=== PATIENT | female | born 1945 | race Caucasian/White ===

== ENCOUNTER 2022-02-09 08:01 | Day surgery (SDC) | payer MEDICARE, OTHER ==
[2022-02-09] VITALS (9 sets, daily range): BP systolic 92–132; BP diastolic 40–76
[~2022-02-09] VITALS: Ht 170.2 cm; Wt 67.6 kg
[2022-02-09] MEDS ORDERED: albumin 25% 100mL bottle x 1 IV PRN (08:30)
[2022-02-09] MEDS ORDERED: DULO30CA52 PO (08:49)
[2022-02-09] MEDS ORDERED: FLUT16SP2 BOTHNARES (08:49)
[2022-02-09] MEDS ORDERED: DICL20GE TP (08:50)
[2022-02-09] MEDS ORDERED: CALC-627 PO (08:51)
[2022-02-09] MEDS ORDERED: ATOR10TA70 PO (08:51)
[2022-02-09] MEDS ORDERED: LEVO125T68 PO (08:53)
[2022-02-09] MEDS ORDERED: CALC0.5C3 PO (08:53)
[2022-02-09] MEDS ORDERED: DABI150C PO (08:53)
[2022-02-09] MEDS ORDERED: CARV25TA2 PO (08:54)
[2022-02-09] MEDS ORDERED: Spironolactone PO (08:58)
== END 2022-02-09 11:50 | disposition home or self-care (01) ==
LOC: SSTAY O 08:01
PROVIDERS: ATTEND Radiology Vascular & Interventional Radiology
DX: R18.8 Other ascites (principal); E78.5 Hyperlipidemia, unspecified; I48.91 Unspecified atrial fibrillation; I11.0 Hypertensive heart disease with heart failure; I50.9 Heart failure, unspecified; E03.9 Hypothyroidism, unspecified; G47.30 Sleep apnea, unspecified; Z98.890 Other specified postprocedural states; Z88.0 Allergy status to penicillin; Z88.8 Allergy status to other drugs, medicaments and biological substances; Z88.1 Allergy status to other antibiotic agents; Z79.899 Other long term (current) drug therapy; Z72.89 Other problems related to lifestyle; Z96.659 Presence of unspecified artificial knee joint; Z98.84 Bariatric surgery status; Z86.73 Personal history of transient ischemic attack (TIA), and cerebral infarction without residual deficits
CPT/HCPCS: 49083; P9047; A6258

== ENCOUNTER 2022-02-19 10:59 | Day surgery (SDC) | payer MEDICARE, OTHER ==
[~2022-02-19] VITALS: Ht 172.7 cm; Wt 64.6 kg
[2022-02-19] VITALS (13 sets, daily range): BP systolic 79–122; BP diastolic 43–61
[~2022-02-19 10:59] MED LIST: ATOR10TA70 PO; CALC-627 PO; CALC0.5C3 PO; CARV25TA2 PO; DABI150C PO; DICL20GE TP; DULO30CA52 PO; FLUT16SP2 BOTHNARES; LEVO125T68 PO; Spironolactone PO
[2022-02-19] MEDS ORDERED: [UNRECOGNIZED DRUG - MIXTURE] PO ×2 (11:40)
[2022-02-19] MEDS ORDERED: DULO-31 PO (11:40)
[2022-02-19 12:27] LABS: BASOPHILS % (AUTO) 0.4 % (0-1); EOSINOPHILS % (AUTO) 0.5 % (0-6); HEMATOCRIT 35.8 % (35.0-45.0); HEMOGLOBIN 11.7 g/dl (12.0-16.0); LYMPHOCYTES # (AUTO) 0.6 X10'3 (1.1-4.8); LYMPHOCYTES % (AUTO) 14.7 % (21-51); MEAN CORPUSCULAR HEMOGLOBIN 30.6 PG (27.0-31.0); MEAN CORPUSCULAR HGB CONC 32.7 g/dL (33.0-36.5); MEAN CORPUSCULAR VOLUME 93.5 FL (78-98); MEAN PLATELET VOLUME 6.5 FL (7.4-10.4); MONOCYTES # (AUTO) 0.3 X10'3 (0-0.9); NEUTROPHILS # (AUTO) 2.9 X10'3 (1.8-7.7); NEUTROPHILS % (AUTO) 77.4 % (42-75); PLATELET COUNT 403 X10'3 (140-440); RED BLOOD COUNT 3.83 X10'6 (4.20-5.60); RED CELL DISTRIBUTION WIDTH 14.1 % (11.5-14.5); WHITE BLOOD COUNT 3.8 X10'3 (4.5-11.0)
[2022-02-19] MEDS ORDERED: LIDOcaine 1%/PF 5ML 10 MG/ML VIAL ONE (12:29)
[2022-02-19] MEDS ORDERED: midazolam 1 mg/ML 2ml injection ONE (12:29)
[2022-02-19] MEDS ORDERED: fentaNYL/PF 50MCG/1 ML 2ML syringe ONE (12:29)
[2022-02-19] MEDS ORDERED: heparin sodium, porcine/PF 100unit/ml 5ML syringe ONE (12:29)
[2022-02-19] MEDS ORDERED: albumin (human) 25% 100ml IV 100 ML IV ONE (13:15)
== END 2022-02-19 15:25 | disposition home or self-care (01) ==
LOC: SSTAY O 10:59
PROVIDERS: ATTEND Radiology Vascular & Interventional Radiology
DX: C80.1 Malignant (primary) neoplasm, unspecified (principal); R18.8 Other ascites; Z88.0 Allergy status to penicillin; Z88.1 Allergy status to other antibiotic agents; Z88.8 Allergy status to other drugs, medicaments and biological substances; Z91.018 Allergy to other foods; Z79.899 Other long term (current) drug therapy; Z98.890 Other specified postprocedural states
CPT/HCPCS: 36415; 36561; 76937; 77001; 85025; 85610; 99152; 99153; C1769; C1788; C1894; J1642; J2250; J3010; J3490; 49083

== ENCOUNTER 2022-03-01 18:46 | Emergency (ER) | payer MEDICARE, OTHER ==
[~2022-03-01] VITALS: Ht 170.2 cm; Wt 140.0 kg
[~2022-03-01 18:46] MED LIST changes: -CALC-627 PO; -DICL20GE TP; +DULO-31 PO; +[UNRECOGNIZED DRUG - MIXTURE] PO
[2022-03-01 19:41] LABS: BASOPHILS % (AUTO) 0.3 % (0-1); EOSINOPHILS % (AUTO) 0.2 % (0-6); HEMATOCRIT 36.5 % (35.0-45.0); HEMOGLOBIN 11.8 g/dl (12.0-16.0); LYMPHOCYTES # (AUTO) 0.4 X10'3 (1.1-4.8); LYMPHOCYTES % (AUTO) 6.6 % (21-51); MEAN CORPUSCULAR HEMOGLOBIN 30.3 PG (27.0-31.0); MEAN CORPUSCULAR HGB CONC 32.5 g/dL (33.0-36.5); MEAN CORPUSCULAR VOLUME 93.5 FL (78-98); MEAN PLATELET VOLUME 6.6 FL (7.4-10.4); MONOCYTES # (AUTO) 0.3 X10'3 (0-0.9); MONOCYTES % (AUTO) 4.6 % (2-12); NEUTROPHILS # (AUTO) 5.9 X10'3 (1.8-7.7); NEUTROPHILS % (AUTO) 88.3 % (42-75); PLATELET COUNT 390 X10'3 (140-440); RED CELL DISTRIBUTION WIDTH 14.5 % (11.5-14.5); WHITE BLOOD COUNT 6.7 X10'3 (4.5-11.0)
[2022-03-01 20:05] LABS: ALANINE AMINOTRANSFERASE 15 U/L (12-78); ALBUMIN 2.1 G/DL (3.4-5.0); ALBUMIN/GLOBULIN RATIO 0.4 (1.1-1.5); ALKALINE PHOSPHATASE 61 IU/L (46-116); ANION GAP 8 (8-16); ASPARTATE AMINO TRANSFERASE 28 U/L (10-37); BILIRUBIN,TOTAL 0.5 MG/DL (0.1-1.0); BLOOD UREA NITROGEN 25 MG/DL (7-18); BUN/CREATININE RATIO 26.3 (6.6-38.0); CALCIUM 8.1 MG/DL (8.5-10.1); CHLORIDE 101 MMOL/L (99-107); CREATININE 0.95 MG/DL (0.40-0.90); GLUCOSE 124 MG/DL (70-104); POTASSIUM 3.7 MMOL/L (3.5-5.1); SODIUM 137 MMOL/L (135-145); TOTAL CARBON DIOXIDE 27.7 MMOL/L (24-32); TOTAL PROTEIN 7.3 G/DL (6.4-8.2); eGFR 57 ML/MIN
[2022-03-01 20:07] LABS: MAGNESIUM 1.7 MG/DL (1.5-2.4)
[2022-03-01 20:52] LABS: CLARITY,URINE SLIGHTLY CLOUDY (Clear); COLOR,URINE YELLOW (Yellow); GLUCOSE, URINE NEGATIVE (Neg); KETONES,URINE TRACE mg/dl (Neg); LEUKOCYTE ESTERASE ,URINE TRACE (Neg); NITRITES, URINE NEGATIVE (Neg); OCCULT BLOOD,URINE NEGATIVE (Neg); PH,URINE 5.5 (4.8-8.0); PROTEIN,URINE TRACE mg/dl (Neg); UROBILINOGEN,URINE 0.2 E.U/dL (0.2-1.0)
[2022-03-01 20:54] LABS: URINE HCG NEGATIVE (NEG)
[2022-03-01 20:55] LABS: UA COLLECTION TYPE CLN CATCH MIDSTREAM
[2022-03-01 20:59] LABS: BACTERIA,URINE FEW /HPF (Neg); RBC,URINE 0-2 /HPF (0-2)
[2022-03-01 21:00] LABS: CAL OXALATE CRYSTALS 3+ /HPF (NEGATIVE); HYALINE CASTS 0-3 /LPF (NEGATIVE); MUCUS STRANDS FEW /LPF (Neg); SQUAMOUS EPITHELIAL CELL,UR FEW /LPF (FEW); WBC CLUMPS,URINE FEW /HPF (NEGATIVE)
[2022-03-01] MEDS ORDERED: FOSFOMYCIN TROMETHAMINE 3 GM PACKET PO ONE (21:35)
[2022-03-01 21:59] VITALS: BP 114/94
== END 2022-03-01 22:00 | disposition home or self-care (01) ==
LOC: ER 18:47
DX: N39.0 Urinary tract infection, site not specified (principal); R50.9 Fever, unspecified; I48.91 Unspecified atrial fibrillation; Z95.0 Presence of cardiac pacemaker; Z85.43 Personal history of malignant neoplasm of ovary; Z88.0 Allergy status to penicillin; Z88.1 Allergy status to other antibiotic agents; Z88.8 Allergy status to other drugs, medicaments and biological substances; Z79.899 Other long term (current) drug therapy
CPT/HCPCS: 36415; 71045; 80053; 81001; 81025; 82948; 83605; 83735; 84145; 84484; 85025; 87040; 87077; 87088; 87186; 93005; 99285

== ENCOUNTER 2022-03-03 08:42 | Day surgery (SDC) | payer MEDICARE, OTHER ==
[2022-03-03] VITALS (7 sets, daily range): BP systolic 94–125; BP diastolic 48–74
[~2022-03-03] VITALS: Ht 170.2 cm; Wt 68.3 kg
[2022-03-03] MEDS ORDERED: LIDOcaine 1% 30ml preserv. free vial SQ STA (08:58)
[2022-03-03] MEDS ORDERED: albumin 25% 100mL bottle x 1 IV PRN (09:15)
== END 2022-03-03 10:30 | disposition home or self-care (01) ==
LOC: SSTAY O 08:42
PROVIDERS: ATTEND Radiology Vascular & Interventional Radiology
DX: R18.8 Other ascites (principal); E78.5 Hyperlipidemia, unspecified; I10 Essential (primary) hypertension; I48.91 Unspecified atrial fibrillation; E03.9 Hypothyroidism, unspecified; Z88.0 Allergy status to penicillin; Z88.8 Allergy status to other drugs, medicaments and biological substances; Z88.1 Allergy status to other antibiotic agents; Z79.899 Other long term (current) drug therapy; Z98.890 Other specified postprocedural states
CPT/HCPCS: 49083; A6258

== ENCOUNTER 2022-03-11 21:23 | Emergency (ER) | payer MEDICARE, OTHER ==
[~2022-03-11] VITALS: Ht 170.2 cm; Wt 63.9 kg
[2022-03-11 21:45] VITALS: BP 95/54
== END 2022-03-12 00:48 | disposition left against medical advice (07) ==
LOC: ER 21:24
DX: R50.9 Fever, unspecified (principal); Z53.21 Procedure and treatment not carried out due to patient leaving prior to being seen by health care provider

== ENCOUNTER 2022-03-13 08:03 | Day surgery (SDC) | payer MEDICARE, OTHER ==
[~2022-03-13] VITALS: Ht 170.2 cm; Wt 64.9 kg
[2022-03-13] MEDS ORDERED: LIDOcaine 1% 30ml preserv. free vial SQ STA (08:15)
[2022-03-13 08:21] VITALS: BP 101/57
[2022-03-13] MEDS ORDERED: albumin 25% 100mL bottle x 1 IV PRN (08:35)
[2022-03-13 09:15] VITALS: BP 90/57
== END 2022-03-13 09:40 | disposition home or self-care (01) ==
LOC: SSTAY O 08:03
PROVIDERS: ATTEND Radiology Vascular & Interventional Radiology
DX: R18.8 Other ascites (principal); E78.5 Hyperlipidemia, unspecified; I10 Essential (primary) hypertension; I48.91 Unspecified atrial fibrillation; Z79.01 Long term (current) use of anticoagulants; Z95.0 Presence of cardiac pacemaker; Z98.890 Other specified postprocedural states; Z79.899 Other long term (current) drug therapy; Z85.43 Personal history of malignant neoplasm of ovary
CPT/HCPCS: 76705; A6258

== ENCOUNTER 2022-04-04 10:38 | Emergency (ER) | payer MEDICARE, OTHER ==
[~2022-04-04] VITALS: Ht 170.2 cm; Wt 59.1 kg
[2022-04-04 10:43] VITALS: BP 136/76
[2022-04-04] MEDS ORDERED: HYDROcodone/acetaminophen 10/325mg tab PO ONE (11:50)
[2022-04-04] MEDS ORDERED: HYDR-3964 PO (11:57)
--- NOTE | 2022-04-04 12:06 | NUR ---
CALLED AT [phone] LEFT MESSAGE THAT PT IS READY FOR DC
== END 2022-04-04 12:25 | disposition home or self-care (01) ==
LOC: ER 10:39
DX: S60.212A Contusion of left wrist, initial encounter (principal); M25.532 Pain in left wrist; I48.91 Unspecified atrial fibrillation; I50.9 Heart failure, unspecified; Z79.01 Long term (current) use of anticoagulants; Z95.0 Presence of cardiac pacemaker; Z85.43 Personal history of malignant neoplasm of ovary; Z88.0 Allergy status to penicillin; Z88.1 Allergy status to other antibiotic agents; Z88.8 Allergy status to other drugs, medicaments and biological substances; Z79.899 Other long term (current) drug therapy; W19.XXXA Unspecified fall, initial encounter; Y93.89 Activity, other specified; Y92.89 Other specified places as the place of occurrence of the external cause; Y99.8 Other external cause status
CPT/HCPCS: 70450; 73110; 99284

== ENCOUNTER 2022-04-10 15:17 | Inpatient (IN) | payer MEDICARE, OTHER ==
[~2022-04-10] VITALS: Ht 170.2 cm; Wt 61.4 kg
[2022-04-10] MEDS ORDERED: normal saline 1000ML IV soln IVB ONE ×2 (15:35→16:40)
[2022-04-10] MEDS ORDERED: normal saline 1000ML IV soln IV ONE (15:35)
[2022-04-10 16:13] LABS: ALANINE AMINOTRANSFERASE 9 U/L (12-78); ALBUMIN/GLOBULIN RATIO 0.4 (1.1-1.5); ALKALINE PHOSPHATASE 65 IU/L (46-116); ANION GAP 9 (8-16); ASPARTATE AMINO TRANSFERASE 11 U/L (10-37); BASOPHILS % (AUTO) 0.1 % (0-1); BILIRUBIN,TOTAL 0.6 MG/DL (0.1-1.0); BLOOD UREA NITROGEN 24 MG/DL (7-18); BUN/CREATININE RATIO 27.9 (6.6-38.0); CALCIUM 6.3 MG/DL (8.5-10.1); CHLORIDE 98 MMOL/L (99-107); CREATININE 0.86 MG/DL (0.40-0.90); EOSINOPHILS % (AUTO) 0 % (0-6); GLUCOSE 148 MG/DL (70-104); LYMPHOCYTES # (AUTO) 0.7 X10'3 (1.1-4.8); LYMPHOCYTES % (AUTO) 4.4 % (21-51); MEAN CORPUSCULAR HEMOGLOBIN 29.8 PG (27.0-31.0); MEAN CORPUSCULAR HGB CONC 32.8 g/dL (33.0-36.5); MEAN CORPUSCULAR VOLUME 90.9 FL (78-98); MEAN PLATELET VOLUME 7.8 FL (7.4-10.4); MONOCYTES # (AUTO) 0.6 X10'3 (0-0.9); MONOCYTES % (AUTO) 3.8 % (2-12); NEUTROPHILS # (AUTO) 14.3 X10'3 (1.8-7.7); NEUTROPHILS % (AUTO) 91.7 % (42-75); PLATELET COUNT 84 X10'3 (140-440); POTASSIUM 3.1 MMOL/L (3.5-5.1); RED BLOOD COUNT 2.13 X10'6 (4.20-5.60); RED CELL DISTRIBUTION WIDTH 17.1 % (11.5-14.5); SODIUM 137 MMOL/L (135-145); TOTAL CARBON DIOXIDE 30.2 MMOL/L (24-32); TOTAL PROTEIN 7.2 G/DL (6.4-8.2); WHITE BLOOD COUNT 15.6 X10'3 (4.5-11.0); eGFR 64 ML/MIN
[2022-04-10] MEDS ORDERED: potassium Cl 20 mEq SR tablet PO STA (16:20)
[2022-04-10 16:22] LABS: MAGNESIUM 1.4 MG/DL (1.5-2.4)
[2022-04-10 16:30] LABS: HEMATOCRIT 19.4 % (35.0-45.0); HEMOGLOBIN 6.3 g/dl (12.0-16.0)
[2022-04-10 16:31] LABS: ANISOCYTOSIS 1+; PLATELET ESTIMATE DECREASED; POLYCHROMASIA 1+
[2022-04-10 16:32] LABS: ELLIPTOCYTES 1+; TARGET CELLS 2+
--- NOTE | 2022-04-10 17:01 | NUR ---
PT HAS A PORT TO RIGHT CHEST WITH MILD REDDNESS AND HEALING SCABS. PT STATES THE PORT WAS PLACED NOT THAT LONG AGO. SHE DENIES ANY PAIN OR DISCOMFORT
[2022-04-10] MEDS ORDERED: GABA300C PO (17:34)
[2022-04-10] MEDS ORDERED: HYDR-3965 PO (17:35)
[2022-04-10] MEDS ORDERED: PROC10TA10 PO (17:37)
[2022-04-10] MEDS ORDERED: ONDA-104 PO (17:38)
[2022-04-10] MEDS ORDERED: LEVO150T61 PO (17:39)
[2022-04-10] MEDS ORDERED: SPIR25TA5 PO (17:39)
[2022-04-10] MEDS ORDERED: ACET325T55 PO (17:41)
[2022-04-10] MEDS ORDERED: ZINC100T2 PO (17:43)
[2022-04-10] MEDS ORDERED: VITA1TAB20 PO (17:43)
[2022-04-10] MEDS ORDERED: CALC500T63 PO (17:43)
[2022-04-10] MEDS ORDERED: MAGN200T PO (17:44)
[2022-04-10] MEDS ORDERED: HYDROcodone/acetaminophen 5mg/325mg tablet PO PRN (17:45)
[2022-04-10] MEDS ORDERED: CHOL20004 PO (17:45)
[2022-04-10] MEDS ORDERED: magnesium hydroxide 30ml (MOM) UD suspension PO PRN (17:45)
[2022-04-10] MEDS ORDERED: ondansetron/PF 4mg/2ml inj IV PRN (17:45)
[2022-04-10] MEDS ORDERED: mag hydrox/Alum hydrox/simeth 30ml oral suspension PO PRN (17:45)
[2022-04-10] MEDS ORDERED: potassium Cl 20 mEq SR tablet PO PRN (17:45)
[2022-04-10] MEDS ORDERED: morphine 2 MG/ML inj. syringe IV PRN (17:45)
[2022-04-10] MEDS ORDERED: acetaminophen 650mg rectal suppository RC PRN (17:45)
[2022-04-10] MEDS: normal saline 1000ml 1,000 ML IV SCH (17:45)
[2022-04-10] MEDS ORDERED: potassium Cl 40MEQ/1/2NS 520ml 520 ML IV PRN (17:45)
[2022-04-10] MEDS ORDERED: magnesium 4gm in 100ml NS 100 ML IV PRN (17:45)
[2022-04-10] MEDS ORDERED: bisacodyl 10mg suppository rectal RC PRN (17:45)
[2022-04-10] MEDS ORDERED: CHOL100025 PO (17:45)
[2022-04-10] MEDS ORDERED: acetaminophen 325mg tablet PO PRN ×2 (17:45)
[2022-04-10] MEDS ORDERED: diphenhydrAMINE 25mg capsule PO PRN (17:45)
[2022-04-10 18:56] LABS: MEAN CORPUSCULAR HEMOGLOBIN 29.5 PG (27.0-31.0); MEAN PLATELET VOLUME 8.1 FL (7.4-10.4); PLATELET COUNT 74 X10'3 (140-440); RED BLOOD COUNT 2.23 X10'6 (4.20-5.60); RED CELL DISTRIBUTION WIDTH 17.7 % (11.5-14.5); WHITE BLOOD COUNT 16.1 X10'3 (4.5-11.0)
[2022-04-10 19:05] LABS: HEMATOCRIT 20.5 % (35.0-45.0); HEMOGLOBIN 6.6 g/dl (12.0-16.0)
[2022-04-10] MEDS ORDERED: DULO30CA52 PO (19:08)
[2022-04-10] MEDS ORDERED: ATOR10TA70 PO (19:09)
[2022-04-10] MEDS: magnesium Cl slow-release 64mg tablet PO PRN (19:15)
[2022-04-10] MEDS: pantoprazole 40MG/NS 100ML BAG 100 ML IV SCH ×2 (19:15→21:00)
[2022-04-10 19:20] LABS: % IRON SATURATION 14 % (11-46); IRON 23 UG/DL (49-151); TOTAL IRON BINDING CAPACITY 161 UG/DL (259-388)
[2022-04-10] MEDS: K and/or MAG REPLACEMENT MC SCH (19:24)
[2022-04-10] MEDS: docusate sod 100mg capsule PO SCH (19:25)
[2022-04-10] MEDS: HYDROcodone/acetaminophen 10/325mg tab PO PRN (19:26)
[2022-04-10 20:22] LABS: FERRITIN 1243 NG/ML (8-252)
[2022-04-10 21:00] VITALS: BP 94/56
[2022-04-10] MEDS: morphine 2 MG/ML inj. syringe IV PRN (22:22)
[2022-04-10 22:43] VITALS: BP 93/58
[2022-04-10 22:58] VITALS: BP 93/58
[2022-04-10 23:43] VITALS: BP 96/69
[2022-04-11] VITALS (13 sets, daily range): BP systolic 97–139; BP diastolic 63–82
[2022-04-11] MEDS: pantoprazole 40MG/NS 100ML BAG 100 ML IV SCH ×5 (01:25→21:00)
[2022-04-11 01:43] LABS: OCCULT BLOOD STOOL NEGATIVE (Neg)
[2022-04-11] MEDS: morphine 2 MG/ML inj. syringe IV PRN (03:36)
[2022-04-11 06:31] LABS: BASOPHILS % (AUTO) 0.1 % (0-1); EOSINOPHILS % (AUTO) 0.2 % (0-6); HEMATOCRIT 26.8 % (35.0-45.0); HEMOGLOBIN 8.9 g/dl (12.0-16.0); LYMPHOCYTES # (AUTO) 1.1 X10'3 (1.1-4.8); LYMPHOCYTES % (AUTO) 8.2 % (21-51); MEAN CORPUSCULAR HEMOGLOBIN 29.8 PG (27.0-31.0); MEAN CORPUSCULAR HGB CONC 33.3 g/dL (33.0-36.5); MEAN CORPUSCULAR VOLUME 89.6 FL (78-98); MEAN PLATELET VOLUME 8.1 FL (7.4-10.4); MONOCYTES # (AUTO) 0.8 X10'3 (0-0.9); NEUTROPHILS # (AUTO) 11.6 X10'3 (1.8-7.7); NEUTROPHILS % (AUTO) 85.5 % (42-75); PLATELET COUNT 78 X10'3 (140-440); RED BLOOD COUNT 2.99 X10'6 (4.20-5.60); RED CELL DISTRIBUTION WIDTH 16.4 % (11.5-14.5); WHITE BLOOD COUNT 13.5 X10'3 (4.5-11.0)
--- NOTE | 2022-04-11 06:57 | NUR ---
Patient in room PCU 3015. I have received report from Sanam and had the opportunity to ask questions and assume patient care.
[2022-04-11 07:09] LABS: ALANINE AMINOTRANSFERASE 8 U/L (12-78); ALBUMIN 1.8 G/DL (3.4-5.0); ALBUMIN/GLOBULIN RATIO 0.4 (1.1-1.5); ALKALINE PHOSPHATASE 63 IU/L (46-116); ANION GAP 9 (8-16); ASPARTATE AMINO TRANSFERASE 11 U/L (10-37); BLOOD UREA NITROGEN 21 MG/DL (7-18); BUN/CREATININE RATIO 30.9 (6.6-38.0); CALCIUM 6.1 MG/DL (8.5-10.1); CHLORIDE 101 MMOL/L (99-107); CREATININE 0.68 MG/DL (0.40-0.90); GLUCOSE 103 MG/DL (70-104); MAGNESIUM 1.4 MG/DL (1.5-2.4); PHOSPHORUS 3.4 MG/DL (2.3-4.5); POTASSIUM 3.3 MMOL/L (3.5-5.1); SODIUM 137 MMOL/L (135-145); TOTAL CARBON DIOXIDE 27.3 MMOL/L (24-32); TOTAL PROTEIN 6.6 G/DL (6.4-8.2); eGFR 84 ML/MIN
[2022-04-11] MEDS: K and/or MAG REPLACEMENT MC SCH ×2 (08:00→20:03)
[2022-04-11] MEDS: docusate sod 100mg capsule PO SCH ×2 (08:00→19:52)
[2022-04-11] MEDS: potassium Cl 20 mEq SR tablet PO PRN ×3 (09:45→19:51)
[2022-04-11] MEDS: magnesium Cl slow-release 64mg tablet PO PRN (09:45)
[2022-04-11] MEDS ORDERED: MIDAZolam 1 MG/ML 5ML VIAL ONE (10:55)
[2022-04-11] MEDS ORDERED: fentaNYL/PF 50MCG/1 ML 2ML syringe ONE (10:55)
[2022-04-11] MEDS ORDERED: LIDOcaine Viscous 15ml cup ONE (10:55)
--- NOTE | 2022-04-11 15:42 | NUR ---
Message: NatZully tran in [id number] is back from GI. No active bleed. Pt is c/o neck pain that started last night and has not gone away. -Lillian [phone]
[2022-04-11] MEDS ORDERED: proCHLORperazine 10mg tablet PO PRN (17:00)
[2022-04-11 18:02] LABS: HEMATOCRIT 27.7 % (35.0-45.0); HEMOGLOBIN 9.3 g/dl (12.0-16.0); MEAN CORPUSCULAR HEMOGLOBIN 29.8 PG (27.0-31.0); MEAN CORPUSCULAR HGB CONC 33.5 g/dL (33.0-36.5); MEAN CORPUSCULAR VOLUME 88.9 FL (78-98); MEAN PLATELET VOLUME 7.9 FL (7.4-10.4); PLATELET COUNT 102 X10'3 (140-440); RED BLOOD COUNT 3.11 X10'6 (4.20-5.60); RED CELL DISTRIBUTION WIDTH 16.7 % (11.5-14.5); WHITE BLOOD COUNT 14.6 X10'3 (4.5-11.0)
--- NOTE | 2022-04-11 19:00 | NUR ---
Pt very tearful at bedside, stating, "I'm going to starve to ." Unhappy about CL Diet. MD notified. Order to change diet to advance as tolerated. Pt tolerating full liquids well, given a turkey sandwich. Tolerated well.
[2022-04-11] MEDS: calcitriol 0.25mcg capsule PO SCH (19:51)
[2022-04-11] MEDS: gabapentin 300mg capsule PO SCH (19:52)
[2022-04-11] MEDS: HYDROcodone/acetaminophen 10/325mg tab PO PRN (19:53)
[2022-04-11] MEDS: duloxetine 30mg CAPSULE.DR PO SCH (19:53)
[2022-04-11] MEDS: carVEDilol 12.5mg tablet PO SCH (19:57)
[2022-04-11] MEDS: normal saline 1000ml 1,000 ML IV SCH (20:01)
[2022-04-11] MEDS ORDERED: cholecalciferol (vitamin D3) 1,000 unit (25mcg) tablet PO SCH (21:00)
[2022-04-12] MEDS: pantoprazole 40MG/NS 100ML BAG 100 ML IV SCH ×2 (00:35→05:53)
[2022-04-12 02:00] VITALS: BP 103/67
[2022-04-12] MEDS: HYDROcodone/acetaminophen 10/325mg tab PO PRN (04:52)
[2022-04-12 06:38] LABS: BASOPHILS % (AUTO) 0.3 % (0-1); EOSINOPHILS % (AUTO) 0.3 % (0-6); HEMATOCRIT 26.1 % (35.0-45.0); LYMPHOCYTES # (AUTO) 1.1 X10'3 (1.1-4.8); LYMPHOCYTES % (AUTO) 10.7 % (21-51); MEAN CORPUSCULAR HEMOGLOBIN 30.8 PG (27.0-31.0); MEAN CORPUSCULAR HGB CONC 34.4 g/dL (33.0-36.5); MEAN CORPUSCULAR VOLUME 89.5 FL (78-98); MEAN PLATELET VOLUME 8.4 FL (7.4-10.4); MONOCYTES # (AUTO) 0.4 X10'3 (0-0.9); MONOCYTES % (AUTO) 4.4 % (2-12); NEUTROPHILS # (AUTO) 8.5 X10'3 (1.8-7.7); NEUTROPHILS % (AUTO) 84.3 % (42-75); PLATELET COUNT 106 X10'3 (140-440); RED BLOOD COUNT 2.91 X10'6 (4.20-5.60); RED CELL DISTRIBUTION WIDTH 17.1 % (11.5-14.5)
[2022-04-12 07:26] LABS: ALANINE AMINOTRANSFERASE 10 U/L (12-78); ALBUMIN 1.6 G/DL (3.4-5.0); ALBUMIN/GLOBULIN RATIO 0.3 (1.1-1.5); ALKALINE PHOSPHATASE 59 IU/L (46-116); ANION GAP 9 (8-16); ASPARTATE AMINO TRANSFERASE 9 U/L (10-37); BILIRUBIN,TOTAL 0.7 MG/DL (0.1-1.0); BLOOD UREA NITROGEN 18 MG/DL (7-18); BUN/CREATININE RATIO 26.9 (6.6-38.0); CHLORIDE 102 MMOL/L (99-107); CREATININE 0.67 MG/DL (0.40-0.90); GLUCOSE 84 MG/DL (70-104); MAGNESIUM 1.3 MG/DL (1.5-2.4); PHOSPHORUS 3.1 MG/DL (2.3-4.5); SODIUM 136 MMOL/L (135-145); TOTAL CARBON DIOXIDE 24.6 MMOL/L (24-32); TOTAL PROTEIN 6.4 G/DL (6.4-8.2); eGFR 86 ML/MIN
[2022-04-12] MEDS ORDERED: levoTHYROXINE 75mcg tablet PO SCH (08:00)
[2022-04-12] MEDS ORDERED: spironolactone 25 MG tablet PO SCH (08:00)
[2022-04-12] MEDS ORDERED: vitamin B comp w/Vit. C tab 1 TAB TABLET PO SCH (08:00)
[2022-04-12] MEDS ORDERED: cholecalciferol (vitamin D3) 1,000 unit (25mcg) tablet PO SCH (08:00)
[2022-04-12] MEDS ORDERED: calcium carbonate 500mg tablet PO SCH (08:00)
[2022-04-12] MEDS ORDERED: magnesium oxide 400mg tablet PO SCH (08:00)
[2022-04-12] MEDS ORDERED: atorvastatin 10mg tablet PO SCH (08:00)
--- NOTE | 2022-04-12 08:16 | NUR ---
Notified Dr. Rodríguez of critical CA+ 6.0.
[2022-04-12] MEDS: carVEDilol 12.5mg tablet PO SCH (08:53)
[2022-04-12] MEDS: calcitriol 0.25mcg capsule PO SCH (08:53)
[2022-04-12] MEDS: gabapentin 300mg capsule PO SCH (08:53)
[2022-04-12] MEDS: duloxetine 30mg CAPSULE.DR PO SCH (08:54)
[2022-04-12] MEDS: docusate sod 100mg capsule PO SCH (08:56)
[2022-04-12] MEDS ORDERED: calcium gluconate inj. 1 GM in normal saline 100ml IV soln 100 ML IV ONE (12:00)
[2022-04-12] MEDS ORDERED: CALCIUM GLUC 1gm/50ml NACL,iso 50 ML IV ONE (12:01)
[2022-04-12 12:08] VITALS: BP 103/66
[2022-04-12] MEDS ORDERED: PANT40TA54 PO ×2 (15:13)
--- NOTE | 2022-04-12 18:03 | NUR ---
Reviewed discharge instructions with patient. Educated pt on when to return to the ED ,follow up appointments, medications Pt stated she understood the information and has no questions or concerns at this time. Pt left the facility via private vehicle with belongings. IV removed x1, and tele monitor returned to De Correspondent.
== END 2022-04-12 18:06 | disposition home health service (06) | DRG 378 ==
LOC: ER 15:17 → ED HOLD 17:50 → EDBEDREQ 19:59 → PCU 3S 20:36
PROVIDERS: ADMIT Family Medicine; ATTEND Family Medicine
PROC: 30233N1 Transfusion of Nonautologous Red Blood Cells into Peripheral Vein, Percutaneous Approach (ICD-10-PCS; principal; 2022-04-10)
PROC: 0DB68ZX Excision of Stomach, Via Natural or Artificial Opening Endoscopic, Diagnostic (ICD-10-PCS; 2022-04-10)
DX: K92.2 Gastrointestinal hemorrhage, unspecified (principal); C56.9 Malignant neoplasm of unspecified ovary; E44.0 Moderate protein-calorie malnutrition; K92.1 Melena; I95.9 Hypotension, unspecified; D63.8 Anemia in other chronic diseases classified elsewhere; E03.9 Hypothyroidism, unspecified; E78.5 Hyperlipidemia, unspecified; G62.9 Polyneuropathy, unspecified; G89.29 Other chronic pain; Z96.653 Presence of artificial knee joint, bilateral; I11.0 Hypertensive heart disease with heart failure; D69.59 Other secondary thrombocytopenia; T45.1X5A Adverse effect of antineoplastic and immunosuppressive drugs, initial encounter; I48.91 Unspecified atrial fibrillation; I50.9 Heart failure, unspecified; E87.6 Hypokalemia; Z79.01 Long term (current) use of anticoagulants; Z79.890 Hormone replacement therapy; Z79.899 Other long term (current) drug therapy; Z80.0 Family history of malignant neoplasm of digestive organs; Z80.1 Family history of malignant neoplasm of trachea, bronchus and lung; Z87.891 Personal history of nicotine dependence; Z88.0 Allergy status to penicillin; Z88.8 Allergy status to other drugs, medicaments and biological substances; Z91.018 Allergy to other foods; Z98.84 Bariatric surgery status; Y92.89 Other specified places as the place of occurrence of the external cause
CPT/HCPCS: 36415; 36430; 43239; 71045; 80053; 82272; 82728; 83540; 83550; 83605; 83735; 83880; 84100; 84145; 84484; 85008; 85025; 85027; 85610; 86644; 86885; 86900; 86901; 86920; 86945; 87040; 87081; 88305; 88342; 93005; 96360; 96361; 97110; 97161; 99152; 99291; A4620; A6212; A6258; C9113; G0378; J0610; J2250; J2270; J3010; J7030; J7040; P9016

== ENCOUNTER 2022-05-01 12:28 | Day surgery (SDC) | payer MEDICARE, OTHER ==
[~2022-05-01] VITALS: Ht 172.7 cm; Wt 67.0 kg
[~2022-05-01 12:28] MED LIST changes: +ACET325T55 PO; +CALC500T63 PO; +CHOL100025 PO; +CHOL20004 PO; -DABI150C PO; -DULO-31 PO; -FLUT16SP2 BOTHNARES; +GABA300C PO; +HYDR-3965 PO; -LEVO125T68 PO; +LEVO150T61 PO; +MAGN200T PO; +ONDA-104 PO; +PANT40TA54 PO; +PROC10TA10 PO; +SPIR25TA5 PO; -Spironolactone PO; +VITA1TAB20 PO; +ZINC100T2 PO; -[UNRECOGNIZED DRUG - MIXTURE] PO
[2022-05-01 13:00] VITALS: BP 147/75
[2022-05-01] MEDS ORDERED: normal saline 1000ml 1,000 ML IV SCH (13:30)
[2022-05-01] MEDS ORDERED: LIDOcaine/PRILOcaine 5gm cream TP ONE (13:44)
[2022-05-01 14:45] VITALS: BP 130/87
== END 2022-05-01 15:05 | disposition home or self-care (01) ==
LOC: SSTAY O 12:28
PROVIDERS: ATTEND Radiology Diagnostic Radiology
DX: T80.212A Local infection due to central venous catheter, initial encounter (principal); Y83.8 Other surgical procedures as the cause of abnormal reaction of the patient, or of later complication, without mention of misadventure at the time of the procedure; C55 Malignant neoplasm of uterus, part unspecified; E78.00 Pure hypercholesterolemia, unspecified; E03.9 Hypothyroidism, unspecified; I50.9 Heart failure, unspecified; Z88.8 Allergy status to other drugs, medicaments and biological substances; Z88.1 Allergy status to other antibiotic agents; Z91.018 Allergy to other foods; Z79.899 Other long term (current) drug therapy
CPT/HCPCS: 36590; 87070; 87075; 87077; 87186; J7030; A6258

== ENCOUNTER 2022-09-10 15:34 | Inpatient (IN) | payer MEDICARE, OTHER ==
[~2022-09-10] VITALS: Ht 170.2 cm; Wt 61.0 kg
[~2022-09-10 15:34] MED LIST changes: -ONDA-104 PO; -PANT40TA54 PO; -PROC10TA10 PO
[2022-09-10] MEDS ORDERED: normal saline 1000ML IV soln IV ONE (16:20)
[2022-09-10 16:41] LABS: BASOPHILS % (AUTO) 0.3 % (0-1); EOSINOPHILS % (AUTO) 0.1 % (0-6); HEMATOCRIT 27.6 % (35.0-45.0); HEMOGLOBIN 9.1 g/dl (12.0-16.0); LYMPHOCYTES # (AUTO) 0.4 X10'3 (1.1-4.8); LYMPHOCYTES % (AUTO) 10.8 % (21-51); MEAN CORPUSCULAR HEMOGLOBIN 32.8 PG (27.0-31.0); MEAN CORPUSCULAR VOLUME 99.4 FL (78-98); MEAN PLATELET VOLUME 7.5 FL (7.4-10.4); MONOCYTES # (AUTO) 0.1 X10'3 (0-0.9); MONOCYTES % (AUTO) 3.3 % (2-12); NEUTROPHILS # (AUTO) 3.3 X10'3 (1.8-7.7); NEUTROPHILS % (AUTO) 85.5 % (42-75); PLATELET COUNT 281 X10'3 (140-440); RED BLOOD COUNT 2.78 X10'6 (4.20-5.60); RED CELL DISTRIBUTION WIDTH 14.9 % (11.5-14.5); WHITE BLOOD COUNT 3.9 X10'3 (4.5-11.0)
[2022-09-10 16:53] LABS: ALANINE AMINOTRANSFERASE 14 U/L (12-78); ALBUMIN 2.1 G/DL (3.4-5.0); ALBUMIN/GLOBULIN RATIO 0.4 (1.1-1.5); ALKALINE PHOSPHATASE 57 IU/L (46-116); ANION GAP 16 (8-16); ASPARTATE AMINO TRANSFERASE 23 U/L (10-37); BILIRUBIN,TOTAL 0.5 MG/DL (0.1-1.0); BLOOD UREA NITROGEN 78 MG/DL (7-18); BUN/CREATININE RATIO 23.9 (10.0-20.0); CALCIUM 8.1 MG/DL (8.5-10.1); CHLORIDE 96 MMOL/L (99-107); CREATININE 3.26 MG/DL (0.40-0.90); GLUCOSE 174 MG/DL (70-104); POTASSIUM 4.5 MMOL/L (3.5-5.1); SODIUM 133 MMOL/L (135-145); TOTAL PROTEIN 7.1 G/DL (6.4-8.2); eGFR 14 ML/MIN
[2022-09-10] MEDS ORDERED: vancomycin/NS 1 GM ADD-VANTAGE 250 ML IV ONE (17:25)
[2022-09-10] MEDS ORDERED: CefTRIAXone 2gm/D5W 50ml BAG 50 ML IV ONE (17:25)
[2022-09-10 17:51] LABS: CLARITY,URINE CLOUDY (Clear); COLOR,URINE YELLOW (Yellow); GLUCOSE, URINE NEGATIVE (Neg); KETONES,URINE NEGATIVE (Neg); LEUKOCYTE ESTERASE ,URINE NEGATIVE (Neg); NITRITES, URINE NEGATIVE (Neg); OCCULT BLOOD,URINE NEGATIVE (Neg); PROTEIN,URINE NEGATIVE (Neg); UROBILINOGEN,URINE 0.2 E.U/dL (0.2-1.0)
[2022-09-10 17:52] LABS: UA COLLECTION TYPE STRAIGHT CATH
[2022-09-10] MEDS ORDERED: NORepinephrine inj. 32 MG in normal saline 250ml IV soln 218 ML IV ONE (17:55)
[2022-09-10] MEDS ORDERED: normal saline 1000ML IV soln IVB ONE (17:55)
[2022-09-10 17:56] LABS: HYALINE CASTS 0-3 /LPF (NEGATIVE); SQUAMOUS EPITHELIAL CELL,UR FEW /LPF (FEW)
[2022-09-10 17:57] LABS: AMORPHOUS URATES 3+
[2022-09-10 17:58] LABS: BACTERIA,URINE FEW /HPF (Neg); RBC,URINE 0-2 /HPF (0-2); WBC,URINE 0-4 /HPF (0-4)
--- NOTE | 2022-09-10 18:13 | NUR ---
DR RODRIGUEZ AT BEDSIDE TO PLACE CENTRAL LINE
[2022-09-10 18:31] LABS: ABG BASE EXCESS -5.7 mmol/L (-2.0-2.0); ABG OXYGEN SATURATION 94.3 % (94-97); ABG PCO2 (T) 31.1 mmHg (32.0-45.0); ABG PO2 (T) 71.4 mmHg (75.0-100.0); FCOHb 0.4 % (0.0-3.9); FMetHb 0.1 % (0.0-1.5); FO2Hb 93.8 % (94-97); PATIENT TEMPERATURE 34.7; TOTAL HEMOGLOBIN 8.7 G/dl (12.0-16.0)
[2022-09-10] MEDS: NORepinephrine 8mg/ 250ml NS 250 ML IV SCH (18:50)
[2022-09-10] MEDS ORDERED: LEVO75TA56 PO (19:04)
[2022-09-10] MEDS ORDERED: LEVO88TA39 PO (19:04)
[2022-09-10] MEDS ORDERED: fentaNYL/PF 50MCG/1 ML 2ML syringe IV ONE (19:20)
--- NOTE | 2022-09-10 19:30 | NUR ---
Naomy Hugger placed on patient.
--- NOTE | 2022-09-10 20:00 | NUR ---
OR Tech at bedside. Nurse to accompany patient upstairs until surgery.
--- NOTE | 2022-09-10 20:24 | NUR ---
at bedside in recovery room 11.
[2022-09-10] MEDS ORDERED: potassium Cl 40MEQ/1/2NS 520ml 520 ML IV PRN (20:40)
[2022-09-10] MEDS ORDERED: ondansetron/PF 4mg/2ml inj IV PRN (20:40)
[2022-09-10] MEDS ORDERED: mag hydrox/Alum hydrox/simeth 30ml oral suspension PO PRN (20:40)
[2022-09-10] MEDS ORDERED: LIDOcaine 2% 10ml TOPICAL JELLY (Urojet) TP ONE (20:40)
[2022-09-10] MEDS ORDERED: magnesium hydroxide 30ml (MOM) UD suspension PO PRN (20:40)
[2022-09-10] MEDS ORDERED: magnesium Cl slow-release 64mg tablet PO PRN (20:40)
[2022-09-10] MEDS ORDERED: normal saline 1000ml 1,000 ML IV SCH (20:40)
[2022-09-10] MEDS ORDERED: magnesium 4gm in 100ml NS 100 ML IV PRN (20:40)
[2022-09-10] MEDS ORDERED: acetaminophen 325mg tablet PO PRN (20:40)
[2022-09-10] MEDS ORDERED: midazolam 100mg in NS 100ml 100 ML IV PRN (20:40)
[2022-09-10] MEDS ORDERED: potassium Cl 20 mEq SR tablet PO PRN ×2 (20:40)
[2022-09-10] MEDS ORDERED: FENTANYL-0.9 % NACL/PF 100 ML IV PRN ×2 (20:40→23:25)
--- NOTE | 2022-09-10 21:15 | NUR ---
PT UP FROM ER TO BED 11 RECOVERY ROOM. PT PRESENTS WITH CENTRAL LINE RIGHT SUBCLAVIAN, QUAD LUMEN, PT HAS TEMP MONCADA CATH. PT VITALS HR75, R14, BP 98/57 SPO2 97% RA, TEMP MONCADA WITH 20MLS OUTPUT TEMP 36.2. 0.9 NORMAL SALINE RUNNING AT 100MLS/HR, LEVOPHED RUNNING 34.31MLS/HR. PT WITH 6 LAP SITES FROM HYSTERECTOMY APPROXIMATELY 2 WEEKS AGO AT [facility].
[2022-09-10] MEDS: normal saline 1000ml 1,000 ML IV SCH (21:31)
--- NOTE | 2022-09-10 22:15 | NUR ---
HR 75, SPO2 96% RA, R15, BP 92/54(60). MONCADA CATHETER OUTPUT 20MLS. Addendum: 09/10/22 at 2225 by Rosette Grace RN, RN Amended: Links added.
--- NOTE | 2022-09-10 23:05 | NUR ---
LAB CALLED, THEY HAVE 2 UNITS OF BLOOD READY WHEN NEEDED.
[2022-09-10] MEDS ORDERED: fentaNYL /PF 50mcg/ml 5ml ampule ONE (23:17)
[2022-09-10] MEDS ORDERED: rocuronium 10mg/ml inj IV ONE (23:17)
[2022-09-10] MEDS ORDERED: midazolam 1 mg/ML 2ml injection ONE (23:17)
[2022-09-10] MEDS ORDERED: propofol inj 20 ML IV ONE (23:17)
[2022-09-10] MEDS ORDERED: propofol 1000mg/100ml bottle 100 ML IV SCH (23:25)
[2022-09-10] MEDS ORDERED: fentaNYL/PF 50MCG/1 ML 2ML syringe IV PRN (23:25)
[2022-09-10] MEDS ORDERED: dexamethasone sod phosphate 4mg/ml inj. ONE (23:28)
[2022-09-10] MEDS ORDERED: sevoflurane 250ml liquid IH ONE (23:28)
--- NOTE | 2022-09-10 23:37 | NUR ---
PT TO OR
[2022-09-11] VITALS (29 sets, daily range): BP systolic 80–155; BP diastolic 43–71
[2022-09-11] MEDS ORDERED: albumin (Human) 5% 250ml 250 ML IV ONE ×3 (00:16→00:36)
--- NOTE | 2022-09-11 01:08 | NUR ---
Received from OR via bed, accompanied by Anesthesiologist lyudmila and report given by Anesthesiolgist. pt sedated and intubated, 7.0 ett, 23 at the teeth. on vent. wrist restraints in place. r subclavian cvl patent. r radial art line. midline incision with [place] dsg, scant amt of sang drainage at distal end. fc patent, scds on. cxr done.
--- NOTE | 2022-09-11 01:37 | NUR ---
sbp in the 80's, levophed increased to 0.2 mcg/kg/hr
[2022-09-11 01:54] LABS: ABG BASE EXCESS -9.1 mmol/L (-2.0-2.0); ABG HCO3 16.1 mmol/L (22.0-26.0); ABG OXYGEN SATURATION 98.6 % (94-97); ABG PCO2 (T) 31.7 mmHg (32.0-45.0); ABG PO2 (T) 152.3 mmHg (75.0-100.0); FCOHb 0.1 % (0.0-3.9); FO2Hb 98.5 % (94-97); PATIENT TEMPERATURE 36.6; PEEP 5 cm H2O; RESPIRATORY RATE 12 b/min; TIDAL VOLUME 400 mL; TOTAL HEMOGLOBIN 8.9 G/dl (12.0-16.0)
--- NOTE | 2022-09-11 02:08 | NUR ---
Report given to receiving nurse. Transferred care, pt stable. no pt Belongings. Special Issues communicated to receiving nurse.
[2022-09-11] MEDS: ipratropium/albuterol 3ml nebule NEB SCH ×6 (03:10→23:00)
[2022-09-11 03:49] LABS: BASOPHILS % (AUTO) 0.2 % (0-1); EOSINOPHILS % (AUTO) 0.1 % (0-6); HEMATOCRIT 25.7 % (35.0-45.0); HEMOGLOBIN 8.4 g/dl (12.0-16.0); LYMPHOCYTES # (AUTO) 0.2 X10'3 (1.1-4.8); LYMPHOCYTES % (AUTO) 4.5 % (21-51); MEAN CORPUSCULAR HEMOGLOBIN 32.4 PG (27.0-31.0); MEAN CORPUSCULAR HGB CONC 32.5 g/dL (33.0-36.5); MEAN CORPUSCULAR VOLUME 99.6 FL (78-98); MEAN PLATELET VOLUME 7.4 FL (7.4-10.4); MONOCYTES # (AUTO) 0.1 X10'3 (0-0.9); MONOCYTES % (AUTO) 2.7 % (2-12); NEUTROPHILS # (AUTO) 3.2 X10'3 (1.8-7.7); NEUTROPHILS % (AUTO) 92.5 % (42-75); PLATELET COUNT 248 X10'3 (140-440); RED BLOOD COUNT 2.58 X10'6 (4.20-5.60); RED CELL DISTRIBUTION WIDTH 15.1 % (11.5-14.5); WHITE BLOOD COUNT 3.5 X10'3 (4.5-11.0)
[2022-09-11 03:59] LABS: APTT 31 SECONDS (22-32)
[2022-09-11 04:02] LABS: ALANINE AMINOTRANSFERASE 14 U/L (12-78); ALBUMIN 2.3 G/DL (3.4-5.0); ALBUMIN/GLOBULIN RATIO 0.6 (1.1-1.5); ALKALINE PHOSPHATASE 44 IU/L (46-116); ANION GAP 17 (8-16); ASPARTATE AMINO TRANSFERASE 21 U/L (10-37); BILIRUBIN,TOTAL 0.4 MG/DL (0.1-1.0); BLOOD UREA NITROGEN 68 MG/DL (7-18); BUN/CREATININE RATIO 24.7 (10.0-20.0); CHLORIDE 103 MMOL/L (99-107); CREATININE 2.75 MG/DL (0.40-0.90); GLUCOSE 172 MG/DL (70-104); PHOSPHORUS 5.6 MG/DL (2.3-4.5); POTASSIUM 4.7 MMOL/L (3.5-5.1); SODIUM 136 MMOL/L (135-145); TOTAL CARBON DIOXIDE 16.2 MMOL/L (24-32); TOTAL PROTEIN 6.1 G/DL (6.4-8.2); TRIGLYCERIDES 95 MG/DL (20-135); eGFR 17 ML/MIN
[2022-09-11] MEDS: normal saline 1000ml 1,000 ML IV SCH ×2 (04:53→17:16)
[2022-09-11] MEDS: NORepinephrine 8mg/ 250ml NS 250 ML IV SCH ×2 (04:54→10:51)
[2022-09-11] MEDS: K and/or MAG REPLACEMENT MC SCH ×2 (08:00→20:00)
[2022-09-11] MEDS ORDERED: famotidine/PF 10 mg/ml inj IV SCH ×2 (08:00→16:32)
[2022-09-11] MEDS: docusate sod 100mg capsule PO SCH ×2 (08:00→20:00)
[2022-09-11] MEDS ORDERED: famotidine/PF IV inj 20 MG in normal saline 100ml IV soln 100 ML IV SCH (08:00)
--- NOTE | 2022-09-11 08:14 | NUR ---
Pt has a HX of a gastric sleeve. Cannot place NG tube it is contraindicated.
[2022-09-11] MEDS: cefepime 1GM/NS ADD-VANTAGE 100 ML IV SCH (08:53)
[2022-09-11] MEDS: metroNIDAZOLE-Flagyl 500mg/NS 100 ML IV SCH ×3 (08:53→22:00)
[2022-09-11] MEDS: heparin, porcine 5000 units/ml vial SQ SCH ×2 (08:54→20:00)
[2022-09-11] MEDS ORDERED: HYDROmorphone 1 mg/ml syringe IV PRN (10:20)
--- NOTE | 2022-09-11 11:16 | NUR ---
Dr. Duncan here to see pt and talking with pt's LARISSA Frost MD on the phone. Dr. Duncan asked to have pressor turned off. Pt BP dropped 40 points. Pressors restarted at a lower rate and will wean off slowly.
--- NOTE | 2022-09-11 11:47 | NUR ---
Initial: Pt admit for septic shock and pneumoperitoneum with decreased mentation and c/o belly pain with constipation. Per ED note pt without a BM x 72 hours though per H&P pt with no BM since hysterectomy 2 weeks ago. Pt currently intubated POD #1 s/p exploratory laparotomy with drainage of abscess. Per RN at [facility] approximately 2L of fluid was drained. Pt to get extubated today per MD at [facility]. Pt with h/o gastric sleeve versus gastric bypass per EMR. Pt would benefit from routine MVM with iron, calcium, and vitamin B12 supplementation if with h/o gastric bypass. Will continue to follow closely and make recommendations as appropriate. Recommendations: 1) Advance to regular diet as medically indicated following extubation 2) Monitor need for ONS/additional protein with diet advancement 3) Consider routine MVM with iron, calcium, and vitamin B12 supplementation if patient's gastric surgery was a bypass 4) Bowel care per physician 5) Weekly scaled weights Addendum: 09/11/22 at [address] Amended: Links added.
[2022-09-11] MEDS ORDERED: diatrozoate meglu/diatrozoate sod (37% iodine) 120ML oral solution RC ONE (12:55)
[2022-09-11] MEDS ORDERED: VANCOmycin 1250MG/NS 250ml Bag 250 ML IV ONE (15:35)
[2022-09-11] MEDS ORDERED: vancomycin/NS 1 GM ADD-VANTAGE 250 ML IV PRN (15:35)
[2022-09-11] MEDS ORDERED: metroNIDAZOLE-Flagyl 500mg/NS 100 ML IV SCH (20:00)
[2022-09-11] MEDS ORDERED: HYDROcodone/acetaminophen 10/325mg tab PO PRN (21:35)
--- NOTE | 2022-09-11 23:00 | NUR ---
BPS mid 80's, moved to other arm and BPS 74. Levophed started at this time. See IV flowsheet for titration
--- NOTE | 2022-09-11 23:47 | NUR ---
noted medications scanned and given at 1999 and 2199 not saved in aug. redocumented, but unable to scan again
[2022-09-12] VITALS (23 sets, daily range): BP systolic 80–110; BP diastolic 42–63
[2022-09-12] MEDS ORDERED: mineral oil/petrolatum ophthal oint EACHEYE SCH (02:00)
[2022-09-12] MEDS: mineral oil/petrolatum ophthal oint EACHEYE SCH ×2 (02:00→07:54)
[2022-09-12] MEDS: ipratropium/albuterol 3ml nebule NEB SCH ×2 (03:00→07:40)
[2022-09-12] MEDS: VANCOMYCIN LEVEL IV SCH (03:00)
[2022-09-12 03:19] LABS: APTT 31 SECONDS (22-32)
[2022-09-12 03:22] LABS: BASOPHILS % (AUTO) 0.3 % (0-1); EOSINOPHILS % (AUTO) 0 % (0-6); HEMATOCRIT 24.3 % (35.0-45.0); HEMOGLOBIN 7.8 g/dl (12.0-16.0); LYMPHOCYTES # (AUTO) 0.4 X10'3 (1.1-4.8); LYMPHOCYTES % (AUTO) 4.6 % (21-51); MEAN CORPUSCULAR HEMOGLOBIN 32.4 PG (27.0-31.0); MEAN CORPUSCULAR HGB CONC 32.3 g/dL (33.0-36.5); MEAN CORPUSCULAR VOLUME 100.2 FL (78-98); MEAN PLATELET VOLUME 7.6 FL (7.4-10.4); MONOCYTES # (AUTO) 0.2 X10'3 (0-0.9); MONOCYTES % (AUTO) 2.5 % (2-12); NEUTROPHILS # (AUTO) 7.9 X10'3 (1.8-7.7); NEUTROPHILS % (AUTO) 92.6 % (42-75); PLATELET COUNT 250 X10'3 (140-440); RED BLOOD COUNT 2.42 X10'6 (4.20-5.60); RED CELL DISTRIBUTION WIDTH 15.4 % (11.5-14.5); WHITE BLOOD COUNT 8.5 X10'3 (4.5-11.0)
[2022-09-12 03:40] LABS: ALANINE AMINOTRANSFERASE 17 U/L (12-78); ALBUMIN/GLOBULIN RATIO 0.5 (1.1-1.5); ALKALINE PHOSPHATASE 46 IU/L (46-116); ANION GAP 14 (8-16); ASPARTATE AMINO TRANSFERASE 23 U/L (10-37); BILIRUBIN,TOTAL 0.3 MG/DL (0.1-1.0); BLOOD UREA NITROGEN 81 MG/DL (7-18); BUN/CREATININE RATIO 28.7 (10.0-20.0); CALCIUM 6.6 MG/DL (8.5-10.1); CHLORIDE 108 MMOL/L (99-107); CREATININE 2.82 MG/DL (0.40-0.90); GLUCOSE 161 MG/DL (70-104); MAGNESIUM 2.2 MG/DL (1.5-2.4); PHOSPHORUS 7.1 MG/DL (2.3-4.5); POTASSIUM 4.6 MMOL/L (3.5-5.1); SODIUM 140 MMOL/L (135-145); TOTAL CARBON DIOXIDE 17.7 MMOL/L (24-32); TOTAL PROTEIN 5.9 G/DL (6.4-8.2); VANCOMYCIN,RANDOM 24.4 UG/ML; eGFR 16 ML/MIN
[2022-09-12] MEDS: normal saline 1000ml 1,000 ML IV SCH ×3 (05:10→22:52)
[2022-09-12] MEDS: metroNIDAZOLE-Flagyl 500mg/NS 100 ML IV SCH ×3 (05:18→22:11)
[2022-09-12] MEDS: cefepime 1GM/NS ADD-VANTAGE 100 ML IV SCH (07:53)
[2022-09-12] MEDS: heparin, porcine 5000 units/ml vial SQ SCH ×2 (07:53→19:12)
[2022-09-12] MEDS: docusate sod 100mg capsule PO SCH ×2 (07:54→19:12)
[2022-09-12] MEDS: K and/or MAG REPLACEMENT MC SCH (08:00)
[2022-09-12] MEDS: HYDROmorphone 1 mg/ml syringe IV PRN (10:35)
[2022-09-12] MEDS ORDERED: ipratropium/albuterol 3ml nebule NEB PRN (11:05)
--- NOTE | 2022-09-12 18:47 | NUR ---
Patient in room CICU 2013. I have received report from nurse and had the opportunity to ask questions and assume patient care.
[2022-09-13] VITALS (13 sets, daily range): BP systolic 82–135; BP diastolic 47–77
[2022-09-13] MEDS: HYDROcodone/acetaminophen 5mg/325mg tablet PO PRN ×4 (00:32→17:34)
[2022-09-13 03:00] LABS: BASOPHILS % (AUTO) 0.3 % (0-1); EOSINOPHILS % (AUTO) 0.2 % (0-6); HEMATOCRIT 25.3 % (35.0-45.0); LYMPHOCYTES # (AUTO) 0.8 X10'3 (1.1-4.8); LYMPHOCYTES % (AUTO) 10.8 % (21-51); MEAN CORPUSCULAR HEMOGLOBIN 32.5 PG (27.0-31.0); MEAN CORPUSCULAR HGB CONC 31.8 g/dL (33.0-36.5); MEAN CORPUSCULAR VOLUME 102.3 FL (78-98); MEAN PLATELET VOLUME 7.6 FL (7.4-10.4); MONOCYTES # (AUTO) 0.2 X10'3 (0-0.9); MONOCYTES % (AUTO) 2.9 % (2-12); NEUTROPHILS % (AUTO) 85.8 % (42-75); PLATELET COUNT 229 X10'3 (140-440); RED BLOOD COUNT 2.47 X10'6 (4.20-5.60); RED CELL DISTRIBUTION WIDTH 15.6 % (11.5-14.5)
[2022-09-13] MEDS: VANCOMYCIN LEVEL IV SCH (03:00)
[2022-09-13 03:05] LABS: APTT 30 SECONDS (22-32)
[2022-09-13 03:32] LABS: ALANINE AMINOTRANSFERASE 14 U/L (12-78); ALBUMIN 1.9 G/DL (3.4-5.0); ALBUMIN/GLOBULIN RATIO 0.5 (1.1-1.5); ALKALINE PHOSPHATASE 50 IU/L (46-116); ANION GAP 14 (8-16); ASPARTATE AMINO TRANSFERASE 16 U/L (10-37); BILIRUBIN,TOTAL 0.3 MG/DL (0.1-1.0); BLOOD UREA NITROGEN 83 MG/DL (7-18); BUN/CREATININE RATIO 31.1 (10.0-20.0); CALCIUM 6.5 MG/DL (8.5-10.1); CHLORIDE 109 MMOL/L (99-107); CREATININE 2.67 MG/DL (0.40-0.90); GLUCOSE 152 MG/DL (70-104); MAGNESIUM 2.2 MG/DL (1.5-2.4); PHOSPHORUS 5.8 MG/DL (2.3-4.5); POTASSIUM 3.9 MMOL/L (3.5-5.1); SODIUM 140 MMOL/L (135-145); TOTAL CARBON DIOXIDE 17.3 MMOL/L (24-32); TOTAL PROTEIN 5.6 G/DL (6.4-8.2); VANCOMYCIN,RANDOM 19.2 UG/ML; eGFR 17 ML/MIN
[2022-09-13] MEDS: metroNIDAZOLE-Flagyl 500mg/NS 100 ML IV SCH ×3 (05:14→22:43)
--- NOTE | 2022-09-13 06:15 | NUR ---
Problems reprioritized. Patient report given, questions answered & plan of care reviewed with Carolin ORANTES.
[2022-09-13] MEDS: heparin, porcine 5000 units/ml vial SQ SCH ×2 (07:26→19:44)
[2022-09-13] MEDS: docusate sod 100mg capsule PO SCH ×2 (07:26→19:38)
[2022-09-13] MEDS: cefepime 1GM/NS ADD-VANTAGE 100 ML IV SCH (07:27)
[2022-09-13] MEDS: normal saline 1000ml 1,000 ML IV SCH ×2 (08:40→19:45)
--- NOTE | 2022-09-13 11:44 | NUR ---
report called to surgical device sales representative, transferred to [facility] with tech.
--- NOTE | 2022-09-13 11:45 | NUR ---
Received patient from ICU. Skin check done with charge nurse. Patient alert, able to make needs known to staff. One to two person assist with transfers. Continent of bowel and bladder. IV Left AC NS 100 ML/HR. Abd surgical wound. Island dressing CDI. All safety measures in place. Will continue to monitor.
--- NOTE | 2022-09-13 18:00 | NUR ---
report given to Tray ORANTES. Patient currently in bed resting. All safety measures in place and call light in reach.
[2022-09-14] MEDS: VANCOMYCIN LEVEL IV SCH (03:00)
[2022-09-14] MEDS: HYDROcodone/acetaminophen 10/325mg tab PO PRN ×2 (04:30→09:07)
[2022-09-14] MEDS: HYDROmorphone 1 mg/ml syringe IV PRN (04:35)
[2022-09-14] MEDS: normal saline 1000ml 1,000 ML IV SCH (05:19)
[2022-09-14] MEDS: metroNIDAZOLE-Flagyl 500mg/NS 100 ML IV SCH (05:41)
[2022-09-14 05:51] LABS: BASOPHILS % (AUTO) 0.4 % (0-1); EOSINOPHILS # (AUTO) 0.2 X10'3 (0-0.9); EOSINOPHILS % (AUTO) 4.1 % (0-6); HEMATOCRIT 27.4 % (35.0-45.0); HEMOGLOBIN 8.8 g/dl (12.0-16.0); LYMPHOCYTES # (AUTO) 0.6 X10'3 (1.1-4.8); LYMPHOCYTES % (AUTO) 12.5 % (21-51); MEAN CORPUSCULAR HGB CONC 32.2 g/dL (33.0-36.5); MEAN CORPUSCULAR VOLUME 99.5 FL (78-98); MEAN PLATELET VOLUME 7.1 FL (7.4-10.4); MONOCYTES # (AUTO) 0.2 X10'3 (0-0.9); MONOCYTES % (AUTO) 3.8 % (2-12); NEUTROPHILS # (AUTO) 4.1 X10'3 (1.8-7.7); NEUTROPHILS % (AUTO) 79.2 % (42-75); PLATELET COUNT 226 X10'3 (140-440); RED BLOOD COUNT 2.76 X10'6 (4.20-5.60); RED CELL DISTRIBUTION WIDTH 15.9 % (11.5-14.5); WHITE BLOOD COUNT 5.1 X10'3 (4.5-11.0)
[2022-09-14 06:00] VITALS: BP 104/76
--- NOTE | 2022-09-14 06:13 | NUR ---
Patient in room MANUELA 356. I have received report from Tray ORANTES and had the opportunity to ask questions and assume patient care.
[2022-09-14 06:15] LABS: ALANINE AMINOTRANSFERASE 12 U/L (12-78); ALBUMIN 1.9 G/DL (3.4-5.0); ALBUMIN/GLOBULIN RATIO 0.5 (1.1-1.5); ALKALINE PHOSPHATASE 48 IU/L (46-116); ANION GAP 12 (8-16); ASPARTATE AMINO TRANSFERASE 14 U/L (10-37); BILIRUBIN,TOTAL 0.4 MG/DL (0.1-1.0); BLOOD UREA NITROGEN 67 MG/DL (7-18); BUN/CREATININE RATIO 32.1 (10.0-20.0); CHLORIDE 111 MMOL/L (99-107); CREATININE 2.09 MG/DL (0.40-0.90); GLUCOSE 117 MG/DL (70-104); MAGNESIUM 1.8 MG/DL (1.5-2.4); PHOSPHORUS 4.2 MG/DL (2.3-4.5); POTASSIUM 3.5 MMOL/L (3.5-5.1); SODIUM 140 MMOL/L (135-145); TOTAL CARBON DIOXIDE 17.3 MMOL/L (24-32); TOTAL PROTEIN 5.6 G/DL (6.4-8.2); VANCOMYCIN,RANDOM 14.4 UG/ML; eGFR 23 ML/MIN
--- NOTE | 2022-09-14 06:35 | NUR ---
Problems reprioritized. Patient report given, questions answered & plan of care reviewed with Brandi FAIRCHILD.
[2022-09-14] MEDS ORDERED: vancomycin/NS 1 GM ADD-VANTAGE 250 ML IV ONE (07:00)
[2022-09-14] MEDS: docusate sod 100mg capsule PO SCH (08:00)
[2022-09-14] MEDS: heparin, porcine 5000 units/ml vial SQ SCH (09:16)
[2022-09-14] MEDS: cefepime 1GM/NS ADD-VANTAGE 100 ML IV SCH (09:43)
[2022-09-14 11:00] VITALS: BP 100/62
--- NOTE | 2022-09-14 11:00 | NUR ---
I have reviewed and agree with interventions, assessments and documentation by Brandi Jovel LVN
[2022-09-14] MEDS ORDERED: LACT1CAP55 PO (11:16)
[2022-09-14] MEDS ORDERED: LINE600T12 PO (11:16)
--- NOTE | 2022-09-14 12:55 | NUR ---
Librado discharged home per . Removed peripheral from LA. Covered dressing CDI. Cleansed patients eduarda and applied new dressing. Dressing CDI. Patient walked with nurse over 300 feet with front wheel walker before DC. Tolerated well. Education of care provided to patient and family. Spoke to daughter on phone and explained to follow up with office as stated in paper work sent home with family. Medications verified and antibiotics. Patient does have intermittent confusion but was receptive to all teachings. Patient left hospital by wheelchair accompanied by .
== END 2022-09-14 13:13 | disposition home health service (06) | DRG 853 ==
LOC: ER 15:35 → ED HOLD 21:03 → CICU 2S 09-11 01:00 → SUR 3N 09-13 12:01
PROVIDERS: ADMIT Internal Medicine Critical Care Medicine; ATTEND Family Medicine
PROC: 02HV33Z Insertion of Infusion Device into Superior Vena Cava, Percutaneous Approach (ICD-10-PCS; principal; 2022-09-11)
PROC: 5A1935Z Respiratory Ventilation, Less than 24 Consecutive Hours (ICD-10-PCS; 2022-09-11)
PROC: 0BH17EZ Insertion of Endotracheal Airway into Trachea, Via Natural or Artificial Opening (ICD-10-PCS; 2022-09-11)
PROC: 0DNW0ZZ Release Peritoneum, Open Approach (ICD-10-PCS; 2022-09-11)
DX: A41.9 Sepsis, unspecified organism (principal); J96.00 Acute respiratory failure, unspecified whether with hypoxia or hypercapnia; N17.0 Acute kidney failure with tubular necrosis; R65.21 Severe sepsis with septic shock; K63.1 Perforation of intestine (nontraumatic); I48.91 Unspecified atrial fibrillation; C55 Malignant neoplasm of uterus, part unspecified; I11.0 Hypertensive heart disease with heart failure; I50.9 Heart failure, unspecified; Z90.49 Acquired absence of other specified parts of digestive tract; Z85.42 Personal history of malignant neoplasm of other parts of uterus; Z88.0 Allergy status to penicillin; Z88.8 Allergy status to other drugs, medicaments and biological substances; Z79.899 Other long term (current) drug therapy; Z85.43 Personal history of malignant neoplasm of ovary; Z85.3 Personal history of malignant neoplasm of breast; Z90.710 Acquired absence of both cervix and uterus; K66.0 Peritoneal adhesions (postprocedural) (postinfection)
CPT/HCPCS: 36415; 36600; 71045; 74176; 74270; 80053; 80202; 81001; 82803; 82948; 83605; 83735; 84100; 84145; 84478; 85018; 85025; 85610; 85730; 86885; 86900; 86901; 87040; 87070; 87077; 87185; 87186; 93005; 93306; 94002; 94003; 94640; 94760; 96365; 96375; 97116; 97161; 97530; 99291; 99292; A4353; A4615; A4618; A6213; A6258; A6449; A7000; A7015; A9900; C1751; G0378; J0692; J0696; J1100; J1170; J1644; J2250; J2704; J3010; J3370; J3490; J7030; J7040; J7120; P9045; Q9963